=== PATIENT | female | born 1955 | race Caucasian/White ===

== ENCOUNTER 2021-12-20 11:19 | Outpatient (CLI) | payer MEDICARE | END 2021-12-20 11:20 | disposition home or self-care (01) | LOC: BICMAMMO 11:19 | PROVIDERS: ATTEND Nurse Practitioner | DX: Z12.31 Encounter for screening mammogram for malignant neoplasm of breast (principal) | CPT/HCPCS: 77063; 77067 ==

== ENCOUNTER 2024-02-01 13:31 | Outpatient (CLI) | payer MEDICARE | END 2024-02-01 13:32 | disposition home or self-care (01) | LOC: BICMAMMO 13:31 | PROVIDERS: ATTEND Nurse Practitioner | DX: Z12.31 Encounter for screening mammogram for malignant neoplasm of breast (principal); E11.9 Type 2 diabetes mellitus without complications | CPT/HCPCS: 36415; 77063; 77067; 80048; 80061; 82043; 83036; 84443; 85025 ==

== ENCOUNTER 2024-03-06 14:31 | Outpatient (CLI) | payer MEDICARE | END 2024-03-06 14:32 | disposition home or self-care (01) | LOC: BICMAMMO 14:31 | PROVIDERS: ATTEND Nurse Practitioner | DX: Z78.0 Asymptomatic menopausal state (principal) | CPT/HCPCS: 77080 ==

== ENCOUNTER 2025-02-03 12:56 | Outpatient (CLI) | payer MEDICARE | END 2025-02-03 12:57 | disposition home or self-care (01) | LOC: BICMAMMO 12:56 | DX: Z12.31 Encounter for screening mammogram for malignant neoplasm of breast (principal); Z85.828 Personal history of other malignant neoplasm of skin | CPT/HCPCS: 77063; 77067 ==